=== PATIENT | male | born 1990 | race Caucasian/White ===

== ENCOUNTER 2021-12-28 05:59 | Emergency (ER) | payer MEDICARE ==
[~2021-12-28] VITALS: Ht 172.7 cm; Wt 88.0 kg
[2021-12-28] MEDS ORDERED: CLARITIN10 M2 PO (06:18)
== END 2021-12-28 07:03 | disposition home or self-care (01) ==
LOC: ED 05:59
DX: R21 Rash and other nonspecific skin eruption (principal)
CPT/HCPCS: 99282

== ENCOUNTER 2024-04-26 13:25 | Emergency (ER) | payer MEDICARE, OTHER ==
[~2024-04-26] VITALS: Ht 172.7 cm; Wt 96.2 kg
[~2024-04-26 13:25] MED LIST: CLARITIN10 M2 PO
[2024-04-26] MEDS ORDERED: OMEPRAZOLE20 MG PO (14:44)
[2024-04-26 14:51] VITALS: BP 127/71
--- NOTE | 2024-04-26 22:03 | EKG ---
[facility] [address] [facility] [place] [address] Signed Normal sinus rhythm Normal ECG No previous ECGs available Confirmed by Robinson Rod MD () on 04/26/2024 10:02:53 PM Electronically Signed By: ROBINSON ROD MD 04/26/242202 PATIENT NAME: GEORGINAJAZLYN Venessa Electrocardiogram DATE OF : 88 PHYSICIAN: ROBINSON ROD MD REPORT #: [id number] REPORT IS CONFIDENTIAL AND NOT TO BE RELEASED WITHOUT AUTHORIZATION
== END 2024-04-26 14:51 | disposition home or self-care (01) ==
LOC: ED 13:25
DX: R07.9 Chest pain, unspecified (principal); Z88.8 Allergy status to other drugs, medicaments and biological substances; Z91.012 Allergy to eggs; Z79.899 Other long term (current) drug therapy
CPT/HCPCS: 93005; 93010; 99284